=== PATIENT | male | born 1980 | race Caucasian/White ===

== ENCOUNTER 2020-12-28 18:12 | Emergency (ER) | payer OTHER ==
--- NOTE | 2020-12-28 19:15 | EDM.PDOC ---
ED HPI GENERAL MEDICAL PROBLEM - General Chief Complaint: ENT Problem Stated Complaint: INHALED SOME CARPET Time Seen by Provider: 12/28/20 19:15 - History of Present Illness INITIAL COMMENTS - FREE TEXT/NARRATIVE: 40-year-old male presents the emergency room with a questionable foreign body in his throat. 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 He has an irritation at the bottom of his throat just above his clavicle. He is not having any breathing difficulties no shortness of breath no increased cough. He has not had any fevers or chills. Eating or drinking does not seem to make this any different. Patient is currently traveling from [place] to [facility]. And will be in [place] tomorrow. - Related Data Allergies Allergy/AdvReac Type Severity Reaction Status Date / Time No Known Allergies Allergy Verified 12/28/20 18:23 Home Meds: Home Meds Aspirin [Vadim Chewable] 81 mg PO DAILY 12/28/20 [History] Metoprolol Succinate 0 mg PO DAILY 12/28/20 [History] lisinopriL [Lisinopril] 0 mg PO DAILY 12/28/20 [History] Past Medical History Cardiovascular History: Reports: Hypertension Psychiatric History: Reports: ADD, Addiction, Anxiety - Infectious Disease History Infectious Disease History: Reports: Chicken Pox Social & Family History - Tobacco Use Tobacco Use Status *Q: Former Tobacco User Used Tobacco, but Quit: Yes Month/Year Tobacco Last Used: 07/2010 - Caffeine Use Caffeine Use: Reports: Coffee, Energy Drinks - Recreational Drug Use Recreational Drug Use: Yes Drug Use in Last 12 Months: Yes Recreational Drug Type: Reports: Marijuana/Hashish Recreational Drug Use Frequency: Daily ED ROS GENERAL - Review of Systems Review Of Systems: See Below Constitutional: Reports: No Symptoms HEENT: Reports: Other (Throat irritation) Respiratory: Reports: No Symptoms Cardiovascular: Reports: No Symptoms GI/Abdominal: Reports: No Symptoms ED EXAM, GENERAL - Physical Exam Exam: See Below Exam Limited By: No Limitations General Appearance: Alert, No Apparent Distress Head: Atraumatic, Normocephalic Neck: Normal Inspection, Supple, Non-Tender, Full Range of Motion Respiratory/Chest: No Respiratory Distress, Lungs Clear, Normal Breath Sounds Cardiovascular: Regular Rate, Rhythm, No Edema, No Murmur GI/Abdominal: Normal Bowel Sounds, Soft, Non-Tender Back Exam: Normal Inspection. No: CVA Tenderness (L), CVA Tenderness (R) Course - Vital Signs Last Recorded V/S: Last Vital Signs Temp 36.2 C 12/28/20 18:21 Pulse 59 L 12/28/20 18:21 Resp 16 12/28/20 18:21 BP 127/78 12/28/20 18:21 Pulse Ox 97 12/28/20 18:21 - Re-Assessments/Exams Free Text/Narrative Re-Assessment/Exam: 12/28/20 19:28 Patient is doing okay at this time. It does not sound like he aspirated this. He has irritation there he may have had some esophageal trauma with swallowing this. Albeit I cannot completely exclude an aspiration. From the material used it does not look like this would show up on x-ray. I have offered CT evaluation looking for the foreign body. However if intervention needed to occur it would probably be back in [place]. Being that the patient is are heading west and going to [place] they have elected to pursue this if it is still problematic at this point. At this point he is feeling an irritation he could have a esophageal irritation from trying to pass the foreign body it is very unclear at this point. We will discharge the patient. Departure - Departure Time of Disposition: 19:29 Disposition: Home, Self-Care 01 Clinical Impression: Throat pain - Discharge Information Forms: ED Department Discharge Additional Instructions: Return to the emergency room with any questions problems worsening symptoms. Seek immediate medical attention if your condition worsens. When you get to [place] or [place] seek medical attention if still symptomatic. Sepsis Event Note (ED) - Evaluation Sepsis Screening Result: No Definite Risk - Focused Exam Vital Signs: Vital Signs Temp Pulse Resp BP Pulse Ox 12/28/20 18:21 36.2 C 59 L 16 127/78 97
== END 2020-12-28 19:40 | disposition home or self-care (01) ==
LOC: JD.ED 18:12
DX: R07.0 Pain in throat (principal); I10 Essential (primary) hypertension; Z87.891 Personal history of nicotine dependence; Z79.899 Other long term (current) drug therapy; Z79.82 Long term (current) use of aspirin
CPT/HCPCS: 99282